=== PATIENT | male | born 1990 | race Caucasian/White ===

== ENCOUNTER 2021-02-18 11:21 | Emergency (ER) | payer OTHER ==
[~2021-02-18] VITALS: Ht 175.3 cm; Wt 65.3 kg
--- NOTE | 2021-02-18 12:01 | NUR ---
PATIENT WALKED BACK FROM TRIAGE WITH CHIEF C/O HEMATEMESIS X2 DAYS. PATIENT REPORT INTERMITTENT MID ABD PAIN. DENIES DIARRHEA, UNABLE TO EAT OR DRINK MUCH THE LAST 2 DAYS. PATIENT CONNECTED TO MONITOR, VSS, CALL LIGHT WITHIN REACH. FRIEND AT BEDSIDE.
--- NOTE | 2021-02-18 12:13 | NUR ---
ERMD AT BEDSIDE FOR EVALUATION.
[2021-02-18] MEDS ORDERED: PANTOPRAZOLE 40 MG IV ONE (12:36)
[2021-02-18] MEDS ORDERED: ONDANSETRON 2MG/ML, 2ML ONE (12:36)
--- NOTE | 2021-02-18 12:51 | NUR ---
PATIENT MEDICATED PER eMAR, NADN, VSS, CALL LIGHT WITHIN REACH. FRIEND AT BEDSIDE.
[2021-02-18 12:57] LABS: BASOPHILS % (AUTO) 1 % (0-1); EOSINOPHILS % (AUTO) 0 % (1-7); LYMPHOCYTES % (AUTO) 24 % (22-44); MEAN CORPUSCULAR HEMOGLOBIN 30.5 pg (27.5-34.5); MEAN CORPUSCULAR HGB CONC 34.4 g/dL (33.2-36.2); MEAN PLATELET VOLUME 8.3 fL (7.4-10.4); MONOCYTES % (AUTO) 8 % (2-9); NEUTROPHILS % (AUTO) 68 % (42-75); PLATELET COUNT 292 x10^3/uL (130-400); RED BLOOD COUNT 4.02 x10^6/uL (4.38-5.82); RED CELL DISTRIBUTION WIDTH 12.7 % (9.4-14.8)
[2021-02-18] MEDS ORDERED: SODIUM CHLORIDE 0.9% 1,000ML IVBOLUS ONE (13:00)
[2021-02-18] MEDS ORDERED: ONDANSETRON 2MG/ML, 2ML IVPush ONE (13:00)
[2021-02-18] MEDS ORDERED: PANTOPRAZOLE 40 MG IV IVPush ONE (13:00)
[2021-02-18 13:05] LABS: PROTHROMBIN TIME 10.7 Seconds (9.6-11.5)
[2021-02-18 13:08] LABS: ALBUMIN 3.6 g/dL (3.4-5.0); ANION GAP 6 mmol/L (5-15); CALCIUM 9.2 mg/dL (8.5-10.1); CHLORIDE 103 mmol/L (98-107)
[2021-02-18 13:12] LABS: ALANINE AMINOTRANSFERASE 18 U/L (12-78); ALKALINE PHOSPHATASE 50 U/L (45-117); BILIRUBIN,TOTAL 0.6 mg/dL (0.2-1.0); CREATININE 0.86 mg/dL (0.7-1.3)
--- NOTE | 2021-02-18 13:57 | NUR ---
PATIENT TO CT SCAN.
[2021-02-18] MEDS ORDERED: DICYCLOMINE 10 MG/ML, 2ML ONE (14:50)
[2021-02-18] MEDS ORDERED: MORPHINE SULFATE 4 MG/ML, 1ML ONE (14:50)
[2021-02-18] MEDS ORDERED: DICYCLOMINE 10 MG/ML, 2ML IM ONE (15:00)
[2021-02-18] MEDS ORDERED: MORPHINE SULFATE 4 MG/ML, 1ML IVPush PRN (15:00)
[2021-02-18] MEDS ORDERED: OMNIPAQUE 350 MG/ML, 100ML BOTTLE ONE (15:24)
[2021-02-18 15:45] VITALS: BP 90/62
--- NOTE | 2021-02-18 15:46 | NUR ---
IV removed with tip intact. Patient given discharge instructions and prescriptions and they have confirmed that they understand the instructions. Patient ambulatory with steady gait. NAD, all questions answered appropriately, denies additional needs at this time. No personal belongings left in room after discharge.
== END 2021-02-18 15:47 | disposition home or self-care (01) ==
LOC: ED 15:30
DX: K92.0 Hematemesis (principal); R00.0 Tachycardia, unspecified; F17.200 Nicotine dependence, unspecified, uncomplicated
CPT/HCPCS: 36415; 74177; 80053; 83690; 85025; 85610; 86850; 86900; 96361; 96372; 96374; 96375; 99285; C9113; J0500; J2270; J2405; J7030; Q9967